=== PATIENT | female | born 1985 | race Caucasian/White ===

== ENCOUNTER 2016-08-26 13:50 | Emergency (ER) | payer OTHER ==
[~2016-08-26 13:50] MED LIST: ACETAMINOPHEN PO; ALBUTEROL17 GM INH; PERCOCET5/325 PO; PRENATAL MULITV1 TAB PO; TYLENOL #3 PO; VICODIN 5/1 TAB 5/50 PO
== END 2016-08-29 13:55 | disposition left against medical advice (07) ==
LOC: CED 13:50
DX: Z53.21 Procedure and treatment not carried out due to patient leaving prior to being seen by health care provider (principal)

== ENCOUNTER 2016-08-29 14:38 | Emergency (ER) | payer OTHER | END 2016-08-29 20:20 | disposition left against medical advice (07) | LOC: CED 14:38 | DX: Z53.21 Procedure and treatment not carried out due to patient leaving prior to being seen by health care provider (principal) ==